=== PATIENT | female | born 1955 | race Caucasian/White ===

== ENCOUNTER → 2016-11-11 | Outpatient (CLI) | payer BC ==
[~2016-11-11] MED LIST: ALLEGRA ALLERG180 MG PO; ASPIR 8181 MG PO; BIOTIN PO; CLARITIN10 MG PO; CYMBALTA30 MG PO; IBUPROFEN600 MG PO; LEVOTHYROXINE100 MCG PO; LISINOPRIL10 MG PO; MEDROXYPROGESTE10 MG PO; NAPROXEN 250 M250 MG PO; NORCO 5-325 TA1 EACH PO; NORCO 7.5-3251 EACH PO; TRAMADOL HCL50 MG PO; VIT B6 PO; VIT C PO; [UNRECOGNIZED DRUG - OTHER] PO
[2016-11-11 10:43] LABS: HEMOGLOBIN 12.3 gm/dl (12.3-15.3); WHITE BLOOD COUNT 7.9 K/UL (4.5-11.0)
== END ==
LOC: OPSV2 09:46
PROVIDERS: Obstetrics & Gynecology
DX: Z01.810 Encounter for preprocedural cardiovascular examination (principal); Z01.812 Encounter for preprocedural laboratory examination; Z01.818 Encounter for other preprocedural examination; N85.01 Benign endometrial hyperplasia; I10 Essential (primary) hypertension; Z79.899 Other long term (current) drug therapy
CPT/HCPCS: 36415; 71020; 80048; 81001; 85025; 93005

== ENCOUNTER 2016-11-25 05:52 | Day surgery (SDC) | payer BC ==
[~2016-11-25 05:52] MED LIST changes: -ALLEGRA ALLERG180 MG PO; -MEDROXYPROGESTE10 MG PO; -NAPROXEN 250 M250 MG PO; -NORCO 7.5-3251 EACH PO
[2016-11-25] MEDS ORDERED: ALLEGRA ALLERG180 MG PO (06:37)
[2016-11-25] MEDS ORDERED: MEDROXYPROGESTE10 MG PO (06:39)
--- NOTE | 2016-11-26 01:07 | NUR ---
PT SLEEPING SOUNDLY.
[2016-11-26 03:37] LABS: HEMOGLOBIN 10.2 gm/dl (12.3-15.3)
[2016-11-26] MEDS ORDERED: NAPROXEN 250 M250 MG PO (12:36)
[2016-11-26] MEDS ORDERED: NORCO 7.5-3251 EACH PO (12:42)
== END 2016-11-26 13:40 | disposition home or self-care (01) ==
LOC: OR 05:52 → OB 10:56 → OR 11-26 13:40
PROVIDERS: Obstetrics & Gynecology
PROC: 0UTC4ZZ Resection of Cervix, Percutaneous Endoscopic Approach (ICD-10-PCS; 2016-11-25)
PROC: 0UT24ZZ Resection of Bilateral Ovaries, Percutaneous Endoscopic Approach (ICD-10-PCS; 2016-11-25)
PROC: 0UT74ZZ Resection of Bilateral Fallopian Tubes, Percutaneous Endoscopic Approach (ICD-10-PCS; 2016-11-25)
PROC: 0UT94ZZ Resection of Uterus, Percutaneous Endoscopic Approach (ICD-10-PCS; principal; 2016-11-25 07:45)
DX: D25.9 Leiomyoma of uterus, unspecified (principal); N85.01 Benign endometrial hyperplasia; I10 Essential (primary) hypertension; E03.9 Hypothyroidism, unspecified; M79.7 Fibromyalgia; J30.2 Other seasonal allergic rhinitis; F41.1 Generalized anxiety disorder; F32.9 Major depressive disorder, single episode, unspecified; F17.210 Nicotine dependence, cigarettes, uncomplicated; Z79.899 Other long term (current) drug therapy; Z82.49 Family history of ischemic heart disease and other diseases of the circulatory system; Z87.440 Personal history of urinary (tract) infections; M19.90 Unspecified osteoarthritis, unspecified site; Z87.19 Personal history of other diseases of the digestive system
CPT/HCPCS: 0; 85014; 85018; 94664; C1769; J0690; J1100; J1885; J2250; J2405; J2710; J2795; J3010; J7120